=== PATIENT | male | born 1965 | race Caucasian/White ===

== ENCOUNTER 2023-04-17 03:39 | Inpatient (IN) | payer OTHER ==
[2023-04-16 10:38] VITALS: BMI 27.3
[2023-04-17] MEDS ORDERED: GENTAMICIN SO4 80 MG/2 ML VIAL ONE (07:05)
[2023-04-17] MEDS ORDERED: VANCOMYCIN 1,000 MG VIAL (RESTRICTED TO ID ONLY) ONE ×2 (07:05→10:26)
[2023-04-17] MEDS ORDERED: THROMBIN (BOVINE) 5,000 UNIT VIAL TP ONE ×4 (07:05→11:00)
[2023-04-17] MEDS ORDERED: BUPIVACAINE HCL/PF 0.5% (5MG/ML) 10 ML VIAL ONE (07:06)
[2023-04-17] MEDS ORDERED: BUPIVACAINE LIPOSOME/PF (EXPAREL) 266 MG/20 ML VIAL ONE (07:06)
[2023-04-17] MEDS ORDERED: ROCURONIUM BROMIDE 50 MG/5 ML SYRINGE ONE ×3 (07:24→10:28)
[2023-04-17] MEDS ORDERED: PROPOFOL 20 ML ONE (07:24)
[2023-04-17] MEDS ORDERED: MIDAZOLAM HCL 2 MG/2 ML SINGLE DOSE VIAL ONE (07:24)
[2023-04-17] MEDS ORDERED: GABAPENTIN 300 MG CAPSULE PO ONE (07:30)
[2023-04-17] MEDS ORDERED: cefOXitin SODIUM 2 GM VIAL (RESTRICTED TO ID) IVPB ONE (07:30)
[2023-04-17] MEDS ORDERED: LIDOCAINE 1%/EPI 1:100000 (20 ML MULTI DOSE VIAL) IJ ONE ×3 (07:40→11:37)
[2023-04-17] MEDS ORDERED: ceFAZolin SODIUM 1 GM VIAL IVPB ONE ×3 (07:41→11:30)
[2023-04-17] MEDS ORDERED: VANCOMYCIN 1 GM in NS (PRE-DOCKED) 1,000 MG/250 ML (RESTRICTED TO ID ONLY) IVPB ONE (07:41)
[2023-04-17] MEDS ORDERED: GENTAMICIN SO4 80 MG/2 ML VIAL IVPB ONE (08:05)
[2023-04-17] MEDS ORDERED: HYDROGEN PEROXIDE 473 ML PO ONE (08:06)
[2023-04-17] MEDS ORDERED: HYDROmorphone HCl 2 MG/ML VIAL ONE ×2 (08:34→12:23)
[2023-04-17] MEDS ORDERED: VANCOMYCIN 1 GM in D5W (PRE-DOCKED) 1,000 MG/250 ML (RESTRICTED TO ID ONLY IVPB ONE (08:35)
[2023-04-17] MEDS ORDERED: TRANEXAMIC ACID 1000 MG/10 ML VIAL ONE (10:26)
[2023-04-17] MEDS ORDERED: ONDANSETRON 4 MG/2 ML VIAL ONE (10:26)
[2023-04-17] MEDS ORDERED: DEXAMETHASONE SOD PHOSPHATE 4 MG/1 ML VIAL ONE (10:26)
[2023-04-17] MEDS ORDERED: ceFAZolin SODIUM 1 GM VIAL ONE (10:26)
[2023-04-17] MEDS ORDERED: BUPIVACAINE HCL/PF 0.5% (5MG/ML) 10 ML VIAL IJ ONE (12:44)
[2023-04-17] MEDS ORDERED: BUPIVACAINE LIPOSOME/PF (EXPAREL) 266 MG/20 ML VIAL NR ONE (12:44)
[2023-04-17] MEDS ORDERED: GLYCOPYRROLATE 0.2 MG/1 ML VIAL ONE (12:47)
[2023-04-17] MEDS ORDERED: NEOSTIGMINE METHYLSULFATE 0.5 MG/1 ML - 10 ML MDV ONE (12:47)
[2023-04-17] MEDS: HYDROmorphone *PCA* 10MG/50ML DISP.SYRIN PCA SCH (13:45)
[2023-04-17] MEDS: LACTATED RINGERS SOLUTION 1,000 ML IV SCH (13:45)
[2023-04-17] MEDS ORDERED: ONDANSETRON 4 MG/2 ML VIAL IVPUSH PRN ×2 (13:47→13:49)
[2023-04-17] MEDS: MEPERIDINE HCL 25 MG/ML VIAL IVPUSH ONE (15:00)
[2023-04-17] MEDS ORDERED: MEPERIDINE HCL 25 MG/ML VIAL ONE (15:09)
[2023-04-17] MEDS ORDERED: ACETAMINOPHEN INJECTION 100 ML IVPB ONE (15:28)
[2023-04-17] MEDS: ACETAMINOPHEN 1000 MG/100 ML BAG IVPB ONE (15:30)
[2023-04-17] MEDS ORDERED: BENZOCAINE/MENTH/CETYLPYRD CL 1 EACH LOZENGE MM PRN (16:00)
[2023-04-17] MEDS: CEFAZOLIN 1 GM in DEXTROSE 5%-WATER - 50 ML IVPB SCH ×2 (20:52→23:43)
[2023-04-17] MEDS: DOCUSATE SODIUM 100 MG CAPSULE (FP) PO SCH (21:29)
[2023-04-17] MEDS: GABAPENTIN 300 MG CAPSULE PO SCH (21:29)
[2023-04-17] MEDS: DULoxetine HCL 30 MG CAPSULE.DR PO SCH (21:29)
[2023-04-18] MEDS: DOCUSATE SODIUM 100 MG CAPSULE (FP) PO SCH ×3 (05:36→21:19)
[2023-04-18 07:56] LABS: HEMATOCRIT 36.3 % (35.4-49); HEMOGLOBIN 12.4 GM/dL (11.7-16.9); MCH 30.5 pg (25.7-33.7); MCHC 34.2 g/dl (32.0-35.9); MEAN CELL VOLUME 89.3 fl (80-96); MEAN PLT VOLUME 8.4 fl (7.5-11.1); PLATELET COUNT 241 10^3/uL (134-434); RBC 4.06 M/mm3 (4.00-5.60); RDW 14.4 % (11.9-15.9); WHITE BLOOD COUNT 10.9 K/mm3 (4.0-10.0)
[2023-04-18 08:12] LABS: POTASSIUM 3.7 mmol/L (3.5-5.1)
[2023-04-18 08:15] LABS: CALCIUM 8.4 mg/dL (8.5-10.1)
[2023-04-18 08:18] LABS: BLOOD UREA NITROGEN 17.6 mg/dL (7-18)
[2023-04-18 08:19] LABS: CREATININE 0.9 mg/dL (0.55-1.3)
[2023-04-18] MEDS: CEFAZOLIN 1 GM in DEXTROSE 5%-WATER - 50 ML IVPB SCH ×3 (08:34→23:35)
[2023-04-18] MEDS: FERROUS SO4 325 MG TABLET (FP) PO SCH (08:36)
[2023-04-18] MEDS: amLODIPine BESYLATE 5 MG TABLET (FP) PO SCH (09:34)
[2023-04-18] MEDS: PANTOPRAZOLE 20 MG TABLET PO SCH (09:35)
[2023-04-18] MEDS: POLYETHYLENE GLYCOL (HEALTHYLAX) 3350 17 GM PACKET PO SCH ×2 (09:35)
[2023-04-18] MEDS: GABAPENTIN 300 MG CAPSULE PO SCH ×2 (09:36→21:19)
[2023-04-18] MEDS: FOLIC ACID 1 MG TABLET (FP) PO SCH (09:36)
[2023-04-18] MEDS: HEPARIN NA (PORCINE) 5,000 UNITS/ML 1ML VIAL SQ SCH ×2 (09:37→18:31)
[2023-04-18] MEDS: BACLOFEN 10 MG TABLET (FP) PO SCH ×2 (09:39→21:19)
[2023-04-18] MEDS: HYDROmorphone *PCA* 10MG/50ML DISP.SYRIN PCA SCH ×2 (10:39→14:23)
[2023-04-18] MEDS: LACTATED RINGERS SOLUTION 1,000 ML IV SCH ×2 (14:01→15:30)
[2023-04-18] MEDS: ACETAMINOPHEN 1000 MG/100 ML BAG IVPB ONE (14:45)
[2023-04-18] MEDS: ACETAMINOPHEN 1000 MG/100 ML BAG IVPB SCH ×2 (15:28→21:20)
[2023-04-18] MEDS: DULoxetine HCL 30 MG CAPSULE.DR PO SCH (21:19)
[2023-04-19] MEDS: HEPARIN NA (PORCINE) 5,000 UNITS/ML 1ML VIAL SQ SCH ×3 (01:26→18:26)
[2023-04-19] MEDS: ACETAMINOPHEN 1000 MG/100 ML BAG IVPB SCH ×2 (01:26→10:41)
[2023-04-19] MEDS: DOCUSATE SODIUM 100 MG CAPSULE (FP) PO SCH ×3 (05:36→21:27)
[2023-04-19] MEDS: HYDROmorphone *PCA* 10MG/50ML DISP.SYRIN PCA SCH ×2 (08:29→14:20)
[2023-04-19] MEDS: MEPERIDINE HCL 25 MG/ML VIAL IVPUSH ONE (09:32)
[2023-04-19] MEDS: CEFAZOLIN 1 GM in DEXTROSE 5%-WATER - 50 ML IVPB SCH ×3 (09:39→23:28)
[2023-04-19] MEDS: GABAPENTIN 300 MG CAPSULE PO SCH ×5 (09:39→21:27)
[2023-04-19] MEDS: POLYETHYLENE GLYCOL (HEALTHYLAX) 3350 17 GM PACKET PO SCH (09:39)
[2023-04-19] MEDS: FERROUS SO4 325 MG TABLET (FP) PO SCH (09:39)
[2023-04-19] MEDS: PANTOPRAZOLE 20 MG TABLET PO SCH (09:40)
[2023-04-19] MEDS: amLODIPine BESYLATE 5 MG TABLET (FP) PO SCH (09:40)
[2023-04-19] MEDS: BACLOFEN 10 MG TABLET (FP) PO SCH ×2 (09:40→21:27)
[2023-04-19] MEDS: FOLIC ACID 1 MG TABLET (FP) PO SCH (09:40)
[2023-04-19 10:57] LABS: BASO % 0.4 % (0-2.0); EOS % 0.6 % (0-4.5); HEMATOCRIT 36.1 % (35.4-49); LYMPH % 28.6 % (8-40); MCH 31.8 pg (25.7-33.7); MCHC 36.1 g/dl (32.0-35.9); MEAN PLT VOLUME 8.4 fl (7.5-11.1); MONO % 11.3 % (3.8-10.2); NEUT % 59.1 % (42.8-82.8); PLATELET COUNT 213 10^3/uL (134-434); WHITE BLOOD COUNT 9.2 K/mm3 (4.0-10.0)
[2023-04-19 11:26] LABS: POTASSIUM 3.2 mmol/L (3.5-5.1)
[2023-04-19 11:30] LABS: BLOOD UREA NITROGEN 11.2 mg/dL (7-18)
[2023-04-19 11:31] LABS: CALCIUM 8.2 mg/dL (8.5-10.1)
[2023-04-19 11:34] LABS: CREATININE 0.6 mg/dL (0.55-1.3)
[2023-04-19] MEDS ORDERED: POTASSIUM CHLORIDE TABS 20 MEQ TABLET.ER (FP) PO ONE (11:47)
[2023-04-19] MEDS: DULoxetine HCL 30 MG CAPSULE.DR PO SCH (21:27)
[2023-04-20] MEDS: HEPARIN NA (PORCINE) 5,000 UNITS/ML 1ML VIAL SQ SCH ×3 (01:30→17:52)
[2023-04-20] MEDS: DOCUSATE SODIUM 100 MG CAPSULE (FP) PO SCH ×3 (05:23→22:00)
[2023-04-20] MEDS: GABAPENTIN 300 MG CAPSULE PO SCH ×3 (05:23→22:00)
[2023-04-20] MEDS: HYDROmorphone *PCA* 10MG/50ML DISP.SYRIN PCA SCH ×2 (10:09→15:12)
[2023-04-20] MEDS: POLYETHYLENE GLYCOL (HEALTHYLAX) 3350 17 GM PACKET PO SCH (10:10)
[2023-04-20] MEDS: CEFAZOLIN 1 GM in DEXTROSE 5%-WATER - 50 ML IVPB SCH ×2 (10:10→15:38)
[2023-04-20] MEDS: PANTOPRAZOLE 20 MG TABLET PO SCH (10:15)
[2023-04-20] MEDS: FERROUS SO4 325 MG TABLET (FP) PO SCH (10:15)
[2023-04-20] MEDS: amLODIPine BESYLATE 5 MG TABLET (FP) PO SCH (10:15)
[2023-04-20] MEDS: FOLIC ACID 1 MG TABLET (FP) PO SCH (10:16)
[2023-04-20] MEDS: BACLOFEN 10 MG TABLET (FP) PO SCH ×2 (10:16→22:00)
[2023-04-20 11:07] LABS: HEMATOCRIT 37.6 % (35.4-49); HEMOGLOBIN 12.8 GM/dL (11.7-16.9); MCH 30.5 pg (25.7-33.7); MCHC 34.1 g/dl (32.0-35.9); MEAN CELL VOLUME 89.5 fl (80-96); MEAN PLT VOLUME 7.7 fl (7.5-11.1); PLATELET COUNT 241 10^3/uL (134-434); WHITE BLOOD COUNT 8.6 K/mm3 (4.0-10.0)
[2023-04-20 11:44] LABS: POTASSIUM 3.3 mmol/L (3.5-5.1)
[2023-04-20 12:13] LABS: BLOOD UREA NITROGEN 10.6 mg/dL (7-18)
[2023-04-20 12:15] LABS: CREATININE 0.6 mg/dL (0.55-1.3); MAGNESIUM 2.4 mg/dL (1.8-2.4)
[2023-04-20 12:22] LABS: CALCIUM 8.4 mg/dL (8.5-10.1)
[2023-04-20] MEDS: LACTATED RINGERS SOLUTION 1,000 ML IV SCH ×2 (13:23→15:12)
[2023-04-20] MEDS ORDERED: POTASSIUM CHLORIDE TABS 20 MEQ TABLET.ER (FP) PO ONE (15:26)
[2023-04-20] MEDS: DULoxetine HCL 30 MG CAPSULE.DR PO SCH (22:00)
[2023-04-21] MEDS: HEPARIN NA (PORCINE) 5,000 UNITS/ML 1ML VIAL SQ SCH ×3 (01:51→18:01)
[2023-04-21] MEDS: DOCUSATE SODIUM 100 MG CAPSULE (FP) PO SCH ×3 (05:48→21:16)
[2023-04-21] MEDS: GABAPENTIN 300 MG CAPSULE PO SCH ×3 (05:49→21:18)
[2023-04-21] MEDS: FERROUS SO4 325 MG TABLET (FP) PO SCH (08:32)
[2023-04-21] MEDS: CEFAZOLIN 1 GM in DEXTROSE 5%-WATER - 50 ML IVPB SCH ×3 (08:32→18:01)
[2023-04-21] MEDS: FOLIC ACID 1 MG TABLET (FP) PO SCH (09:03)
[2023-04-21] MEDS: amLODIPine BESYLATE 5 MG TABLET (FP) PO SCH (09:03)
[2023-04-21] MEDS: BACLOFEN 10 MG TABLET (FP) PO SCH ×2 (09:03→21:19)
[2023-04-21] MEDS: PANTOPRAZOLE 20 MG TABLET PO SCH (09:04)
[2023-04-21] MEDS: POLYETHYLENE GLYCOL (HEALTHYLAX) 3350 17 GM PACKET PO SCH ×2 (09:04→21:19)
[2023-04-21] MEDS: HYDROmorphone *PCA* 10MG/50ML DISP.SYRIN PCA SCH (14:56)
[2023-04-21] MEDS: LACTATED RINGERS SOLUTION 1,000 ML IV SCH (14:58)
[2023-04-21] MEDS: ONDANSETRON 4 MG/2 ML VIAL IVPUSH PRN (18:08)
[2023-04-21] MEDS: ACETAMINOPHEN 325 MG TABLET (FP) PO PRN (18:15)
[2023-04-21] MEDS: DULoxetine HCL 30 MG CAPSULE.DR PO SCH (21:18)
[2023-04-22] MEDS: HEPARIN NA (PORCINE) 5,000 UNITS/ML 1ML VIAL SQ SCH ×3 (00:14→17:26)
[2023-04-22] MEDS: CEFAZOLIN 1 GM in DEXTROSE 5%-WATER - 50 ML IVPB SCH ×3 (00:14→17:26)
[2023-04-22] MEDS: GABAPENTIN 300 MG CAPSULE PO SCH ×3 (06:04→21:34)
[2023-04-22] MEDS: DOCUSATE SODIUM 100 MG CAPSULE (FP) PO SCH ×3 (06:04→21:34)
[2023-04-22] MEDS: FERROUS SO4 325 MG TABLET (FP) PO SCH (07:48)
[2023-04-22] MEDS: FOLIC ACID 1 MG TABLET (FP) PO SCH (09:42)
[2023-04-22] MEDS: POLYETHYLENE GLYCOL (HEALTHYLAX) 3350 17 GM PACKET PO SCH ×3 (09:43→21:45)
[2023-04-22] MEDS: amLODIPine BESYLATE 5 MG TABLET (FP) PO SCH (09:43)
[2023-04-22] MEDS: PANTOPRAZOLE 20 MG TABLET PO SCH (09:43)
[2023-04-22] MEDS: BACLOFEN 10 MG TABLET (FP) PO SCH ×2 (09:43→21:34)
[2023-04-22 13:10] LABS: HEMATOCRIT 41.7 % (35.4-49); HEMOGLOBIN 14.8 GM/dL (11.7-16.9); MCH 31.2 pg (25.7-33.7); MCHC 35.6 g/dl (32.0-35.9); MEAN CELL VOLUME 87.5 fl (80-96); MEAN PLT VOLUME 7.4 fl (7.5-11.1); PLATELET COUNT 349 10^3/uL (134-434); RBC 4.76 M/mm3 (4.00-5.60); RDW 13.8 % (11.9-15.9); WHITE BLOOD COUNT 7.4 K/mm3 (4.0-10.0)
[2023-04-22] MEDS: HYDROmorphone *PCA* 10MG/50ML DISP.SYRIN PCA SCH (13:15)
[2023-04-22 13:45] LABS: POTASSIUM 3.3 mmol/L (3.5-5.1)
[2023-04-22 13:47] LABS: BLOOD UREA NITROGEN 9.4 mg/dL (7-18)
[2023-04-22] MEDS ORDERED: POTASSIUM CHLORIDE TABS 20 MEQ TABLET.ER (FP) PO ONE (13:47)
[2023-04-22 13:48] LABS: ALBUMIN 3.7 g/dl (3.4-5.0); CALCIUM 8.8 mg/dL (8.5-10.1); MAGNESIUM 2.3 mg/dL (1.8-2.4)
[2023-04-22 13:51] LABS: CREATININE 0.7 mg/dL (0.55-1.3)
[2023-04-22 13:52] LABS: BILIRUBIN,TOTAL 0.5 mg/dL (0.2-1); TOT PROT 7.3 g/dl (6.4-8.2)
[2023-04-22] MEDS: LACTATED RINGERS SOLUTION 1,000 ML IV SCH (17:28)
[2023-04-22 19:23] LABS: URINE APPEARANCE Clear; URINE BILIRUBIN Negative (NEGATIVE); URINE COLOR Yellow; URINE GLUCOSE (UA) Negative (NEGATIVE); URINE KETONE 4+ (NEGATIVE); URINE LEUK ESTERASE Negative (NEGATIVE); URINE NITRITE Negative (NEGATIVE); URINE PROTEIN Negative (NEGATIVE); URINE UROBILINOGEN 4.0 E.U/dl mg/dL (0.2-1.0)
[2023-04-22] MEDS: DULoxetine HCL 30 MG CAPSULE.DR PO SCH (21:34)
[2023-04-23] MEDS: CEFAZOLIN 1 GM in DEXTROSE 5%-WATER - 50 ML IVPB SCH ×4 (00:16→23:25)
[2023-04-23] MEDS: HEPARIN NA (PORCINE) 5,000 UNITS/ML 1ML VIAL SQ SCH ×3 (01:17→18:06)
[2023-04-23] MEDS: GABAPENTIN 300 MG CAPSULE PO SCH ×3 (05:06→21:39)
[2023-04-23] MEDS: DOCUSATE SODIUM 100 MG CAPSULE (FP) PO SCH ×3 (05:06→21:39)
[2023-04-23] MEDS: FERROUS SO4 325 MG TABLET (FP) PO SCH (09:34)
[2023-04-23] MEDS: FOLIC ACID 1 MG TABLET (FP) PO SCH (09:34)
[2023-04-23] MEDS: PANTOPRAZOLE 20 MG TABLET PO SCH (09:34)
[2023-04-23] MEDS: amLODIPine BESYLATE 5 MG TABLET (FP) PO SCH (09:34)
[2023-04-23] MEDS: POLYETHYLENE GLYCOL (HEALTHYLAX) 3350 17 GM PACKET PO SCH ×2 (09:34→21:39)
[2023-04-23] MEDS: BACLOFEN 10 MG TABLET (FP) PO SCH ×2 (09:34→21:39)
[2023-04-23] MEDS: oxyCODONE HCL 5 MG TABLET PO PRN ×4 (09:48→23:25)
[2023-04-23] MEDS: ACETAMINOPHEN 325 MG TABLET (FP) PO PRN ×3 (09:49→18:58)
[2023-04-23] MEDS: LACTATED RINGERS SOLUTION 1,000 ML IV SCH (15:59)
[2023-04-23] MEDS ORDERED: GLYCERIN 1 RECTAL SUPPOSITORY, ADULT RC PRN (19:49)
[2023-04-23] MEDS: DULoxetine HCL 30 MG CAPSULE.DR PO SCH (21:39)
[2023-04-24] MEDS: ACETAMINOPHEN 325 MG TABLET (FP) PO PRN ×2 (00:35→11:45)
[2023-04-24] MEDS: ONDANSETRON 4 MG/2 ML VIAL IVPUSH PRN (00:49)
[2023-04-24] MEDS: HEPARIN NA (PORCINE) 5,000 UNITS/ML 1ML VIAL SQ SCH ×3 (02:47→19:34)
[2023-04-24] MEDS: GABAPENTIN 300 MG CAPSULE PO SCH ×3 (05:52→21:39)
[2023-04-24] MEDS: oxyCODONE HCL 5 MG TABLET PO PRN ×3 (05:52→20:57)
[2023-04-24] MEDS: DOCUSATE SODIUM 100 MG CAPSULE (FP) PO SCH ×3 (05:52→21:39)
[2023-04-24] MEDS: CEFAZOLIN 1 GM in DEXTROSE 5%-WATER - 50 ML IVPB SCH (07:56)
[2023-04-24] MEDS: PANTOPRAZOLE 20 MG TABLET PO SCH (09:17)
[2023-04-24] MEDS: amLODIPine BESYLATE 5 MG TABLET (FP) PO SCH (09:17)
[2023-04-24] MEDS: FERROUS SO4 325 MG TABLET (FP) PO SCH (09:17)
[2023-04-24] MEDS: POLYETHYLENE GLYCOL (HEALTHYLAX) 3350 17 GM PACKET PO SCH ×2 (09:17→21:41)
[2023-04-24] MEDS: FOLIC ACID 1 MG TABLET (FP) PO SCH (09:17)
[2023-04-24] MEDS: BACLOFEN 10 MG TABLET (FP) PO SCH ×2 (09:17→21:39)
[2023-04-24 10:18] LABS: HEMATOCRIT 43.2 % (35.4-49); HEMOGLOBIN 14.8 GM/dL (11.7-16.9); MCH 30.7 pg (25.7-33.7); MCHC 34.3 g/dl (32.0-35.9); MEAN CELL VOLUME 89.6 fl (80-96); MEAN PLT VOLUME 7.9 fl (7.5-11.1); PLATELET COUNT 388 10^3/uL (134-434); RBC 4.82 M/mm3 (4.00-5.60); RDW 13.7 % (11.9-15.9); WHITE BLOOD COUNT 7.4 K/mm3 (4.0-10.0)
[2023-04-24 10:42] LABS: POTASSIUM 3.3 mmol/L (3.5-5.1)
[2023-04-24 10:50] LABS: CALCIUM 9.4 mg/dL (8.5-10.1)
[2023-04-24 10:51] LABS: BLOOD UREA NITROGEN 12.3 mg/dL (7-18)
[2023-04-24 10:52] LABS: MAGNESIUM 2.4 mg/dL (1.8-2.4)
[2023-04-24 10:54] LABS: CREATININE 0.9 mg/dL (0.55-1.3)
[2023-04-24] MEDS: POTASSIUM CHLORIDE TABS 20 MEQ TABLET.ER (FP) PO SCH (13:14)
[2023-04-24] MEDS: LACTATED RINGERS SOLUTION 1,000 ML IV SCH (19:18)
[2023-04-24] MEDS: DULoxetine HCL 30 MG CAPSULE.DR PO SCH (21:40)
[2023-04-25] MEDS: ACETAMINOPHEN 325 MG TABLET (FP) PO PRN (02:01)
[2023-04-25] MEDS: HEPARIN NA (PORCINE) 5,000 UNITS/ML 1ML VIAL SQ SCH (02:02)
[2023-04-25] MEDS: DOCUSATE SODIUM 100 MG CAPSULE (FP) PO SCH ×3 (05:49→21:17)
[2023-04-25] MEDS: GABAPENTIN 300 MG CAPSULE PO SCH ×3 (05:52→21:18)
[2023-04-25] MEDS ORDERED: GENTAMICIN SO4 80 MG/2 ML VIAL ONE (08:19)
[2023-04-25] MEDS ORDERED: THROMBIN (BOVINE) 5,000 UNIT VIAL TP ONE ×2 (08:19→13:46)
[2023-04-25] MEDS ORDERED: BUPIVACAINE LIPOSOME/PF (EXPAREL) 266 MG/20 ML VIAL ONE (08:20)
[2023-04-25] MEDS ORDERED: BUPIVACAINE HCL/PF 0.5% (5MG/ML) 10 ML VIAL ONE ×2 (08:20→10:54)
[2023-04-25] MEDS: FERROUS SO4 325 MG TABLET (FP) PO SCH (08:40)
[2023-04-25] MEDS: amLODIPine BESYLATE 5 MG TABLET (FP) PO SCH (09:12)
[2023-04-25 09:50] LABS: INR 1.15 (0.83-1.09); PROTHROMBIN TIME (PATIENT) 13.3 SEC (9.7-13.0)
[2023-04-25] MEDS: FOLIC ACID 1 MG TABLET (FP) PO SCH (10:03)
[2023-04-25] MEDS: POLYETHYLENE GLYCOL (HEALTHYLAX) 3350 17 GM PACKET PO SCH ×2 (10:03→21:36)
[2023-04-25] MEDS: POTASSIUM CHLORIDE TABS 20 MEQ TABLET.ER (FP) PO SCH (10:03)
[2023-04-25] MEDS: BACLOFEN 10 MG TABLET (FP) PO SCH ×2 (10:03→21:17)
[2023-04-25] MEDS: PANTOPRAZOLE 20 MG TABLET PO SCH (10:03)
[2023-04-25] MEDS: oxyCODONE HCL 5 MG TABLET PO PRN ×2 (11:12→19:08)
[2023-04-25] MEDS ORDERED: POTASSIUM CHLORIDE ORAL LIQUID 20 MEQ/15 ML PO ONE (11:18)
[2023-04-25] MEDS ORDERED: SUCCINYLCHOLINE CHLORIDE 200 MG/10 ML SYRINGE ONE (12:11)
[2023-04-25] MEDS ORDERED: PROPOFOL 40 ML ONE (12:11)
[2023-04-25] MEDS ORDERED: MIDAZOLAM HCL 2 MG/2 ML SINGLE DOSE VIAL ONE (12:11)
[2023-04-25] MEDS ORDERED: ROCURONIUM BROMIDE 50 MG/5 ML SYRINGE ONE (12:16)
[2023-04-25] MEDS ORDERED: LIDOCAINE 1%/EPI 1:100000 (50 ML MULTI DOSE VIAL) INF ONE (13:14)
[2023-04-25] MEDS ORDERED: ceFAZolin SODIUM 1 GM VIAL IVPB ONE (13:15)
[2023-04-25] MEDS ORDERED: VANCOMYCIN 1,000 MG VIAL (RESTRICTED TO ID ONLY) IVPB ONE (13:15)
[2023-04-25] MEDS ORDERED: GENTAMICIN SO4 80 MG/2 ML VIAL IVPB ONE (13:35)
[2023-04-25] MEDS ORDERED: HYDROGEN PEROXIDE 473 ML PO ONE (13:44)
[2023-04-25] MEDS ORDERED: FENTANYL CITRATE/PF 50 MCG/ML VIAL ONE ×5 (14:15→15:47)
[2023-04-25] MEDS ORDERED: ONDANSETRON 4 MG/2 ML VIAL IVPUSH PRN (15:02)
[2023-04-25] MEDS ORDERED: GLYCERIN 1 RECTAL SUPPOSITORY, ADULT RC PRN (15:02)
[2023-04-25] MEDS ORDERED: BENZOCAINE/MENTH/CETYLPYRD CL 1 EACH LOZENGE MM PRN (15:02)
[2023-04-25] MEDS ORDERED: ACETAMINOPHEN INJECTION 100 ML IVPB ONE (15:19)
[2023-04-25] MEDS: ACETAMINOPHEN 1000 MG/100 ML BAG IVPB SCH ×2 (15:20→23:07)
[2023-04-25] MEDS: LACTATED RINGERS SOLUTION 1,000 ML IV SCH ×4 (15:51→17:07)
[2023-04-25] MEDS: CEFAZOLIN 1 GM in DEXTROSE 5%-WATER - 50 ML IVPB SCH (21:17)
[2023-04-25] MEDS: DULoxetine HCL 30 MG CAPSULE.DR PO SCH (21:18)
[2023-04-25] MEDS: acetaZOLAMIDE 250 MG TABLET PO SCH (22:01)
[2023-04-26] MEDS: CEFAZOLIN 1 GM in DEXTROSE 5%-WATER - 50 ML IVPB SCH ×2 (01:20→09:34)
[2023-04-26] MEDS: DOCUSATE SODIUM 100 MG CAPSULE (FP) PO SCH ×3 (05:34→21:57)
[2023-04-26] MEDS: GABAPENTIN 300 MG CAPSULE PO SCH ×2 (05:34→14:45)
[2023-04-26] MEDS: ACETAMINOPHEN 1000 MG/100 ML BAG IVPB SCH ×2 (06:44→15:24)
[2023-04-26] MEDS: PANTOPRAZOLE 20 MG TABLET PO SCH (09:30)
[2023-04-26] MEDS: BACLOFEN 10 MG TABLET (FP) PO SCH ×2 (09:30→21:57)
[2023-04-26] MEDS: POTASSIUM CHLORIDE TABS 20 MEQ TABLET.ER (FP) PO SCH (09:32)
[2023-04-26] MEDS: amLODIPine BESYLATE 5 MG TABLET (FP) PO SCH (09:32)
[2023-04-26] MEDS: FOLIC ACID 1 MG TABLET (FP) PO SCH (09:33)
[2023-04-26] MEDS: FERROUS SO4 325 MG TABLET (FP) PO SCH (09:44)
[2023-04-26] MEDS: acetaZOLAMIDE 250 MG TABLET PO SCH ×2 (09:44→21:57)
[2023-04-26] MEDS: POLYETHYLENE GLYCOL (HEALTHYLAX) 3350 17 GM PACKET PO SCH ×2 (09:58→21:59)
[2023-04-26 10:56] LABS: BASO % 0.3 % (0-2.0); EOS % 1.3 % (0-4.5); HEMOGLOBIN 13.8 GM/dL (11.7-16.9); LYMPH % 24.7 % (8-40); MCH 30.3 pg (25.7-33.7); MCHC 33.8 g/dl (32.0-35.9); MEAN CELL VOLUME 89.8 fl (80-96); MEAN PLT VOLUME 7.3 fl (7.5-11.1); MONO % 10.6 % (3.8-10.2); NEUT % 63.1 % (42.8-82.8); PLATELET COUNT 372 10^3/uL (134-434); RBC 4.56 M/mm3 (4.00-5.60); RDW 13.7 % (11.9-15.9); WHITE BLOOD COUNT 10.5 K/mm3 (4.0-10.0)
[2023-04-26 11:36] LABS: ALBUMIN 3.4 g/dl (3.4-5.0); BLOOD UREA NITROGEN 13.6 mg/dL (7-18)
[2023-04-26 11:37] LABS: MAGNESIUM 2.5 mg/dL (1.8-2.4)
[2023-04-26 11:39] LABS: BILIRUBIN,TOTAL 0.9 mg/dL (0.2-1); CREATININE 0.9 mg/dL (0.55-1.3); TOT PROT 6.8 g/dl (6.4-8.2)
[2023-04-26 11:42] LABS: POTASSIUM 3.3 mmol/L (3.5-5.1)
[2023-04-26] MEDS: oxyCODONE HCL 5 MG TABLET PO PRN (12:57)
[2023-04-26] MEDS ORDERED: KCL 10 MEQ IVPB 10 MEQ/100 ML INFUS.BAG IVPB SCH (13:30)
[2023-04-26 13:51] VITALS: RESP 18
[2023-04-26] MEDS: HEPARIN NA (PORCINE) 5,000 UNITS/ML 1ML VIAL SQ SCH ×2 (15:24→21:56)
[2023-04-26] MEDS: LACTATED RINGERS SOLUTION 1,000 ML IV SCH (15:29)
[2023-04-26] MEDS ORDERED: POTASSIUM CHLORIDE TABS 10 MEQ TABLET.ER (FP) PO ONE (18:18)
[2023-04-26] MEDS: DULoxetine HCL 30 MG CAPSULE.DR PO SCH (21:57)
[2023-04-27] MEDS: GABAPENTIN 300 MG CAPSULE PO SCH ×2 (01:59→05:57)
[2023-04-27] MEDS: oxyCODONE HCL 5 MG TABLET PO PRN ×2 (01:59→09:47)
[2023-04-27] MEDS: HEPARIN NA (PORCINE) 5,000 UNITS/ML 1ML VIAL SQ SCH (05:57)
[2023-04-27] MEDS: DOCUSATE SODIUM 100 MG CAPSULE (FP) PO SCH (05:58)
[2023-04-27] MEDS: LACTATED RINGERS SOLUTION 1,000 ML IV SCH (06:21)
[2023-04-27] MEDS: FERROUS SO4 325 MG TABLET (FP) PO SCH (09:46)
[2023-04-27] MEDS: FOLIC ACID 1 MG TABLET (FP) PO SCH (09:46)
[2023-04-27] MEDS: PANTOPRAZOLE 20 MG TABLET PO SCH (09:46)
[2023-04-27] MEDS: BACLOFEN 10 MG TABLET (FP) PO SCH (09:47)
[2023-04-27] MEDS: amLODIPine BESYLATE 5 MG TABLET (FP) PO SCH (09:47)
[2023-04-27] MEDS: POTASSIUM CHLORIDE TABS 20 MEQ TABLET.ER (FP) PO SCH (09:48)
[2023-04-27] MEDS: POLYETHYLENE GLYCOL (HEALTHYLAX) 3350 17 GM PACKET PO SCH (09:48)
[2023-04-27] MEDS: acetaZOLAMIDE 250 MG TABLET PO SCH (09:48)
[2023-04-27 14:12] VITALS: BP 138/80; PULSE 88; TEMP 98.6
== END 2023-04-27 14:33 | disposition home or self-care (01) | DRG 321 ==
LOC: J2C 03:39 → J4W 18:11 → J8W 04-18 21:41
PROVIDERS: ADMIT Neurological Surgery; ATTEND Family Medicine
PROC: 0RB30ZZ Excision of Cervical Vertebral Disc, Open Approach (ICD-10-PCS; 2023-04-17)
PROC: 00QT0ZZ Repair Spinal Meninges, Open Approach (ICD-10-PCS; 2023-04-17)
PROC: 00U20KZ Supplement Dura Mater with Nonautologous Tissue Substitute, Open Approach (ICD-10-PCS; 2023-04-17)
PROC: 4A1004G Monitoring of Central Nervous Electrical Activity, Intraoperative, Open Approach (ICD-10-PCS; 2023-04-17)
PROC: 0RG2071 Fusion of 2 or more Cervical Vertebral Joints with Autologous Tissue Substitute, Posterior Approach, Posterior Column, Open Approach (ICD-10-PCS; 2023-04-17)
PROC: 00QT0ZZ Repair Spinal Meninges, Open Approach (ICD-10-PCS; 2023-04-17)
PROC: 00U20KZ Supplement Dura Mater with Nonautologous Tissue Substitute, Open Approach (ICD-10-PCS; 2023-04-17)
PROC: 0RG20A0 Fusion of 2 or more Cervical Vertebral Joints with Interbody Fusion Device, Anterior Approach, Anterior Column, Open Approach (ICD-10-PCS; principal; 2023-04-17 08:00)
PROC: 00NW0ZZ Release Cervical Spinal Cord, Open Approach (ICD-10-PCS; 2023-04-17 08:00)
PROC: 001U0J6 Bypass Spinal Canal to Peritoneal Cavity with Synthetic Substitute, Open Approach (ICD-10-PCS; 2023-04-25)
PROC: 4A11X4G Monitoring of Peripheral Nervous Electrical Activity, Intraoperative, External Approach (ICD-10-PCS; 2023-04-25)
DX: M50.90 Cervical disc disorder, unspecified, unspecified cervical region (principal); M50.01 Cervical disc disorder with myelopathy, high cervical region; M47.12 Other spondylosis with myelopathy, cervical region; G97.41 Accidental puncture or laceration of dura during a procedure; R51.9 Headache, unspecified; G97.82 Other postprocedural complications and disorders of nervous system; G96.198 Other disorders of meninges, not elsewhere classified; Y83.9 Surgical procedure, unspecified as the cause of abnormal reaction of the patient, or of later complication, without mention of misadventure at the time of the procedure; I10 Essential (primary) hypertension; J98.11 Atelectasis; M40.209 Unspecified kyphosis, site unspecified; R20.2 Paresthesia of skin
CPT/HCPCS: 36415; 71045-TC-FY; 72125-TC; 74018-TC-FY; 76000-TC-FY; 80048; 80053; 81003; 83735; 85025; 85027; 85610; 86850; 86900; 86901; 87086; 94760; 97116-GP; 97161-GP; C1713; C1889; J0475; J1644

== ENCOUNTER 2023-10-29 04:22 | Day surgery (SDC) | payer BC, OTHER ==
[2023-10-25 17:12] VITALS: BMI 25.5
[2023-10-29] MEDS ORDERED: MIDAZOLAM HCL 2 MG/2 ML SINGLE DOSE VIAL ONE ×2 (14:29→14:53)
[2023-10-29] MEDS ORDERED: ONDANSETRON 4 MG/2 ML VIAL ONE (14:29)
[2023-10-29] MEDS ORDERED: FENTANYL CITRATE/PF 50 MCG/ML VIAL ONE (14:29)
[2023-10-29 17:10] VITALS: BP 108/79; PULSE 61; RESP 18; TEMP 97.6
== END 2023-10-29 17:22 | disposition home or self-care (01) ==
LOC: JASU-SURG 04:22
PROVIDERS: ATTEND Urology
PROC: 0TF3XZZ Fragmentation in Right Kidney Pelvis, External Approach (ICD-10-PCS; principal; 2023-10-29 14:00)
DX: N20.0 Calculus of kidney (principal)

== ENCOUNTER 2024-04-03 08:00 | Inpatient (IN) | payer OTHER ==
[2024-04-16 17:03] VITALS: BMI 26.1
[2024-04-21] MEDS ORDERED: GENTAMICIN SO4 80 MG/2 ML VIAL ONE (07:03)
[2024-04-21] MEDS ORDERED: THROMBIN (BOVINE) 5,000 UNIT VIAL TP ONE (07:03)
[2024-04-21] MEDS ORDERED: LIDOCAINE 1%/EPI 1:100000 (20 ML MULTI DOSE VIAL) ONE (07:04)
[2024-04-21] MEDS ORDERED: PROPOFOL 20 ML ONE (07:26)
[2024-04-21] MEDS ORDERED: ROCURONIUM BROMIDE 50 MG/5 ML SYRINGE ONE (07:26)
[2024-04-21] MEDS ORDERED: MIDAZOLAM HCL 2 MG/2 ML SINGLE DOSE VIAL ONE (07:26)
[2024-04-21] MEDS: LIDOCAINE 1%/EPI 1:100000 (20 ML MULTI DOSE VIAL) IJ ONE ×2 (08:00→08:56)
[2024-04-21] MEDS: ceFAZolin SODIUM 1 GM VIAL IVPB ONE ×2 (08:01→08:52)
[2024-04-21] MEDS: VANCOMYCIN 1 GM in D5W (PRE-DOCKED) 1,000 MG/250 ML (RESTRICTED TO ID ONLY IVPB ONE ×2 (08:01→08:49)
[2024-04-21] MEDS ORDERED: SUCCINYLCHOLINE CHLORIDE 200 MG/10 ML SYRINGE ONE (08:30)
[2024-04-21] MEDS: GENTAMICIN SO4 80 MG/2 ML VIAL IVPB ONE ×2 (09:07→09:30)
[2024-04-21] MEDS: THROMBIN (BOVINE) 5,000 UNIT VIAL TP ONE ×2 (09:07→09:30)
[2024-04-21] MEDS ORDERED: NEOSTIGMINE METHYLSULFATE 0.5 MG/1 ML - 10 ML MDV ONE (09:42)
[2024-04-21] MEDS ORDERED: BACITRACIN ZINC 15 GM TUBE TOPICAL OINTMENT ONE (09:57)
[2024-04-21] MEDS: BACITRACIN ZINC 15 GM TUBE TOPICAL OINTMENT TP ONE (10:10)
[2024-04-21] MEDS ORDERED: ONDANSETRON 4 MG/2 ML VIAL IVPUSH PRN ×2 (10:30→10:53)
[2024-04-21] MEDS ORDERED: ACETAMINOPHEN INJECTION 100 ML ONE ×2 (10:36→17:00)
[2024-04-21] MEDS: ACETAMINOPHEN 1000 MG/100 ML BAG IVPB ONE (10:41)
[2024-04-21] MEDS ORDERED: diphenhydrAMINE HCL 25 MG CAPSULE (FP) PO PRN (10:53)
[2024-04-21] MEDS: LACTATED RINGERS SOLUTION 1,000 ML/1,000 ML INFUS.BAG IV SCH (11:21)
[2024-04-21] MEDS: GABAPENTIN 400 MG CAPSULE PO SCH (14:36)
[2024-04-21] MEDS ORDERED: ceFAZolin SODIUM 1 GM VIAL ONE (15:58)
[2024-04-21] MEDS: CEFAZOLIN 1 GM in DEXTROSE 5%-WATER - 50 ML IVPB SCH (16:02)
[2024-04-21] MEDS: LACTATED RINGERS SOLUTION 1,000 ML IV SCH ×2 (16:18→18:14)
[2024-04-21] MEDS: ACETAMINOPHEN 1000 MG/100 ML BAG IVPB SCH (17:10)
[2024-04-21] MEDS: DOCUSATE SODIUM 100 MG CAPSULE (FP) PO SCH (17:11)
[2024-04-21] MEDS: ACETAMINOPHEN 500 MG TABLET (FP) PO SCH (18:12)
[2024-04-21] MEDS: MEPERIDINE HCL 25 MG/ML VIAL IVPUSH ONE (18:14)
[2024-04-21] MEDS: oxyCODONE HCL 5 MG TABLET PO PRN (18:59)
[2024-04-21] MEDS: HEPARIN NA (PORCINE) 5,000 UNITS/ML 1ML VIAL SQ SCH (21:26)
[2024-04-21] MEDS: TAMSULOSIN HCL 0.4 MG CAP PO SCH (21:26)
[2024-04-21] MEDS ORDERED: NABUMETONE 750 MG TABLET PO SCH (22:00)
[2024-04-21] MEDS ORDERED: NABUMETONE 500 MG TABLET PO SCH (22:19)
[2024-04-21] MEDS: acetaZOLAMIDE 250 MG TABLET PO SCH (22:42)
[2024-04-22] MEDS: NABUMETONE 500 MG TABLET PO SCH (00:20)
[2024-04-22] MEDS: MULTIVITAMINS (DAILY MVI) TABLET (FP) PO SCH (09:15)
[2024-04-22] MEDS: amLODIPine BESYLATE 5 MG TABLET (FP) PO SCH (09:16)
[2024-04-22] MEDS: PANTOPRAZOLE 20 MG TABLET PO SCH (09:19)
[2024-04-22 09:21] LABS: HEMATOCRIT 42.2 % (35.4-49); MCH 29.9 pg (25.7-33.7); MCHC 33.2 g/dl (32.0-35.9); MEAN CELL VOLUME 90.2 fl (80-96); MEAN PLT VOLUME 8.8 fl (7.5-11.1); PLATELET COUNT 265 10^3/uL (134-434); RBC 4.67 M/mm3 (4.00-5.60); RDW 14.5 % (11.9-15.9)
[2024-04-22 09:32] LABS: POTASSIUM 3.6 mmol/L (3.5-5.1)
[2024-04-22 09:37] LABS: BLOOD UREA NITROGEN 17.9 mg/dL (7-18); CALCIUM 9.4 mg/dL (8.5-10.1)
[2024-04-22 09:40] LABS: CREATININE 0.9 mg/dL (0.55-1.3)
[2024-04-23] MEDS: oxyCODONE HCL 5 MG TABLET PO PRN (15:59)
[2024-04-23] MEDS: ONDANSETRON 4 MG/2 ML VIAL IVPB ONE (16:36)
[2024-04-24 09:14] LABS: HEMATOCRIT 40.9 % (35.4-49); HEMOGLOBIN 14.3 GM/dL (11.7-16.9); MCH 30.6 pg (25.7-33.7); MEAN CELL VOLUME 87.4 fl (80-96); MEAN PLT VOLUME 8.1 fl (7.5-11.1); PLATELET COUNT 259 10^3/uL (134-434); RBC 4.68 M/mm3 (4.00-5.60); RDW 14.5 % (11.9-15.9); WHITE BLOOD COUNT 7.4 K/mm3 (4.0-10.0)
[2024-04-24] MEDS: MAGNESIUM HYDROX 2400MG/30ML ORAL SUSPENSION 30 ML CUP PO ONE (09:36)
[2024-04-24] MEDS: POLYETHYLENE GLYCOL (HEALTHYLAX) 3350 17 GM PACKET PO SCH (09:36)
[2024-04-24 09:44] LABS: POTASSIUM 3.1 mmol/L (3.5-5.1)
[2024-04-24 09:49] LABS: ALBUMIN 3.8 g/dl (3.4-5.0)
[2024-04-24 09:50] LABS: BLOOD UREA NITROGEN 23.4 mg/dL (7-18)
[2024-04-24 09:52] LABS: CREATININE 1.2 mg/dL (0.55-1.3)
[2024-04-24 09:53] LABS: BILIRUBIN,TOTAL 0.9 mg/dL (0.2-1); TOT PROT 6.8 g/dl (6.4-8.2)
[2024-04-24] MEDS: ACETAMINOPHEN 325 MG TABLET (FP) PO ONE ×2 (09:53→10:02)
[2024-04-24] MEDS: SODIUM CHLORIDE 0.45% 1,000 ML IV SCH (10:00)
[2024-04-24 18:35] LABS: MAGNESIUM 2.5 mg/dL (1.8-2.4)
[2024-04-24] MEDS: POTASSIUM CHLORIDE ORAL LIQUID 20 MEQ/15 ML PO ONE (18:53)
[2024-04-24] MEDS: POTASSIUM CHLORIDE 10 MEQ in SODIUM CHLORIDE 0.45% 1,000 ML IV SCH (19:23)
[2024-04-25 10:29] LABS: HEMATOCRIT 42.5 % (35.4-49); HEMOGLOBIN 14.4 GM/dL (11.7-16.9); MCH 29.8 pg (25.7-33.7); MCHC 33.9 g/dl (32.0-35.9); MEAN CELL VOLUME 87.9 fl (80-96); MEAN PLT VOLUME 8.4 fl (7.5-11.1); PLATELET COUNT 281 10^3/uL (134-434); RBC 4.83 M/mm3 (4.00-5.60); RDW 14.1 % (11.9-15.9); WHITE BLOOD COUNT 6.6 K/mm3 (4.0-10.0)
[2024-04-25 11:03] LABS: POTASSIUM 3.2 mmol/L (3.5-5.1)
[2024-04-25 11:08] LABS: CALCIUM 8.9 mg/dL (8.5-10.1)
[2024-04-25 11:10] LABS: BLOOD UREA NITROGEN 16.8 mg/dL (7-18); MAGNESIUM 2.6 mg/dL (1.8-2.4)
[2024-04-25 11:12] LABS: CREATININE 0.9 mg/dL (0.55-1.3)
[2024-04-25] MEDS: POTASSIUM CHLORIDE ORAL LIQUID 20 MEQ/15 ML PO SCH (14:41)
[2024-04-26 11:07] LABS: POTASSIUM 3.4 mmol/L (3.5-5.1)
[2024-04-26 11:13] LABS: BLOOD UREA NITROGEN 11.6 mg/dL (7-18); CALCIUM 9.2 mg/dL (8.5-10.1)
[2024-04-26 11:14] LABS: MAGNESIUM 2.4 mg/dL (1.8-2.4)
[2024-04-26 11:17] LABS: CREATININE 0.9 mg/dL (0.55-1.3)
[2024-04-27 09:56] LABS: EOS % 4.5 % (0-4.5); HEMATOCRIT 39.9 % (35.4-49); LYMPH % 48.5 % (8-40); MCH 30.8 pg (25.7-33.7); MCHC 35.1 g/dl (32.0-35.9); MEAN CELL VOLUME 87.6 fl (80-96); MEAN PLT VOLUME 8.1 fl (7.5-11.1); MONO % 9.8 % (3.8-10.2); NEUT % 36.2 % (42.8-82.8); PLATELET COUNT 277 10^3/uL (134-434); RBC 4.55 M/mm3 (4.00-5.60); RDW 14.5 % (11.9-15.9); WHITE BLOOD COUNT 5.9 K/mm3 (4.0-10.0)
[2024-04-27 10:18] LABS: POTASSIUM 3.7 mmol/L (3.5-5.1)
[2024-04-27 10:23] LABS: CALCIUM 8.8 mg/dL (8.5-10.1)
[2024-04-27 10:24] LABS: ALBUMIN 3.6 g/dl (3.4-5.0); BLOOD UREA NITROGEN 11.6 mg/dL (7-18)
[2024-04-27 10:26] LABS: CREATININE 0.9 mg/dL (0.55-1.3)
[2024-04-27 10:28] LABS: BILIRUBIN,TOTAL 0.9 mg/dL (0.2-1); TOT PROT 6.6 g/dl (6.4-8.2)
[2024-04-27 15:11] VITALS: RESP 18
[2024-04-28 11:16] LABS: HEMATOCRIT 39.5 % (35.4-49); HEMOGLOBIN 13.8 GM/dL (11.7-16.9); MCH 30.7 pg (25.7-33.7); MEAN CELL VOLUME 87.6 fl (80-96); MEAN PLT VOLUME 7.8 fl (7.5-11.1); PLATELET COUNT 283 10^3/uL (134-434); RDW 14.2 % (11.9-15.9); WHITE BLOOD COUNT 5.8 K/mm3 (4.0-10.0)
[2024-04-28 11:41] LABS: POTASSIUM 3.4 mmol/L (3.5-5.1)
[2024-04-28 11:42] LABS: CALCIUM 8.6 mg/dL (8.5-10.1)
[2024-04-28 11:43] LABS: ALBUMIN 3.5 g/dl (3.4-5.0); BLOOD UREA NITROGEN 8.6 mg/dL (7-18); MAGNESIUM 2.2 mg/dL (1.8-2.4)
[2024-04-28 11:46] LABS: CREATININE 0.8 mg/dL (0.55-1.3)
[2024-04-28 11:48] LABS: BILIRUBIN,TOTAL 0.6 mg/dL (0.2-1); TOT PROT 6.6 g/dl (6.4-8.2)
[2024-04-28] MEDS: POTASSIUM CHLORIDE ORAL LIQUID 20 MEQ/15 ML PO ONE (18:41)
[2024-04-29 06:30] VITALS: BP 108/96; PULSE 69; TEMP 99
== END 2024-04-29 11:10 | disposition home or self-care (01) | DRG 23 ==
LOC: J2C 04-21 04:05 → J8W 04-21 18:09
PROVIDERS: ADMIT Family Medicine; ATTEND Family Medicine
PROC: 009 Central Nervous System and Cranial Nerves, Drainage (ICD-10-PCS; principal; 2024-04-21 08:00)
DX: G96.198 Other disorders of meninges, not elsewhere classified (principal); I10 Essential (primary) hypertension; R26.81 Unsteadiness on feet; N40.1 Benign prostatic hyperplasia with lower urinary tract symptoms; R33.9 Retention of urine, unspecified; R51.9 Headache, unspecified
CPT/HCPCS: 36415; 70360-TC-FY; 70450-TC; 70553-TC; 80048; 80053; 83735; 85025; 85027; 86850; 86900; 86901; 94760; 97116-GP; 97161-GP; J0131; J1644

== ENCOUNTER 2025-03-23 16:47 | Emergency (ER) | payer OTHER ==
[2025-03-23] MEDS ORDERED: TETRACAINE 0.5% HCL 0.6ML DROPPER.BOTTLE OD ONE (16:55)
[2025-03-23] MEDS ORDERED: FLUORESCEIN NA 1 EA STRIP OD ONE (16:55)
[2025-03-23 17:16] VITALS: BP 152/82; PULSE 75; RESP 20; TEMP 98.2; BMI 25.8
== END 2025-03-23 17:44 | disposition home or self-care (01) ==
LOC: FER 16:47
DX: H11.32 Conjunctival hemorrhage, left eye (principal)
CPT/HCPCS: 99283-25